=== PATIENT | male | born 1985 | race Caucasian/White ===

== ENCOUNTER 2019-01-16 22:16 | Observation (INO) | payer SELFPAY ==
[2019-01-16 22:24] VITALS: BMI 33.0
[2019-01-16] MEDS ORDERED: LIDOCAINE VISCOUS 2% ORAL/TOP 20 ML UNIT-DOSE CUP MM ONE (23:00)
[2019-01-16] MEDS ORDERED: FAMOTIDINE 20 MG/50 ML IVPB 20 MG/50 ML MG IVPB ONE ×2 (23:00→23:14)
[2019-01-16] MEDS ORDERED: SODIUM CHLORIDE 1,000 ML IV STA (23:00)
[2019-01-16] MEDS ORDERED: MAG HYDROX/AL HYDROX/SIMETH 30 ML UNIT-DOSE CUP PO ONE (23:00)
[2019-01-16] MEDS ORDERED: ONDANSETRON 4 MG/2 ML VIAL IVPB ONE (23:00)
--- NOTE | 2019-01-16 23:07 | PDOC ---
History of Present Illness - General History Source: Patient Exam Limitations: No Limitations - History of Present Illness Travel History: No Initial Comments: 01/16/19 23:03 Pt is a 33yo M with no significant PMH presenting to ED with complaints of epigastric abdominal pain [id number]. Pt states he was eating chicken and rice soup and drinking soda and thinks he may have eaten too much because he started to have abdominal pain and burning sensation in the chest. He normally has heart burn for which he takes tums but states that he has not had abdominal pain this severe before. Pain is in the epigastric area, is sharp, does not radiate, associated with nausea and 2 episodes of emesis which was black due to the soda. He drank milk to calm down the burning but thinks it made it worse. He has been drinking gingerale as well and has been able to keep it down. Denies diarrhea, fevers, chills, recent travel, sob, back pain, urinary symptoms , headache, blood in stools, use of NSAIDs, alcohol use, abdominal surgeries. PMD: Kevin PMH: none PSH: none Allergies: nkda Social: occasional alcohol use <Na Morrow - Last Filed: 01/17/19 07:38> <Joslyn Garcia - Last Filed: 01/18/19 12:53> - General Chief Complaint: Pain Stated Complaint: STOMACE PAIN Time Seen by Provider: 01/16/19 22:35 Past History - Past Medical History COPD: No - Suicide/Smoking/Psychosocial Hx Smoking History: Current every day smoker Have you smoked in the past 12 months: Yes Number of Cigarettes Smoked Daily: 20 Information on smoking cessation initiated: No Hx Alcohol Use: No Drug/Substance Use Hx: No <Na Morrow - Last Filed: 01/17/19 07:38> <Joslyn Garcia - Last Filed: 01/18/19 12:53> - Past Medical History Allergies/Adverse Reactions: Allergies Allergy/AdvReac Type Severity Reaction Status Date / Time No Known Allergies Allergy Verified 01/16/19 22:24 Home Medications: Ambulatory Orders Pantoprazole Sodium [Protonix -] 40 mg PO DAILY #14 tablet.ec 01/17/19 Review of Systems - Review of Systems Constitutional: No: Chills, Fever HEENTM: No: Symptoms Reported Respiratory: No: Symptoms reported Cardiac (ROS): Yes: See HPI, Chest Pain (burning sensation) ABD/GI: Yes: See HPI, Nausea, Vomiting, Abdominal cramping. No: Diarrhea, Rectal Bleeding, Tarry Stools : No: Symptoms Reported Musculoskeletal: No: Symptoms Reported Integumentary: No: Symptoms Reported Neurological: No: Symptoms reported <Na Morrow - Last Filed: 01/17/19 07:38> *Physical Exam - Vital Signs Last Vital Signs Temp Pulse Resp BP Pulse Ox 98.0 F 94 H 18 139/104 H 100 01/16/19 22:21 01/16/19 22:21 01/16/19 22:21 01/16/19 22:21 01/16/19 22:21 - Physical Exam General Appearance: Yes: Appropriately Dressed, Moderate Distress, Obese HEENT: positive: EOMI, RON, Normal ENT Inspection, Other (halolithosis) Neck: positive: Trachea midline, Supple. negative: Lymphadenopathy (R), Lymphadenopathy (L) Respiratory/Chest: positive: Lungs Clear, Normal Breath Sounds. negative: Crackles, Rales, Wheezing Cardiovascular: positive: Regular Rhythm, Regular Rate, S1, S2. negative: Edema , JVD, Murmur Vascular Pulses: Carotid (R): 2+, Carotid (L): 2+, Dorsalis-Pedis (R): 2+, Doralis-Pedis (L): 2+ Gastrointestinal/Abdominal: positive: Normal Bowel Sounds, Soft, Tenderness ( epigastric >RUQ>LUQ). negative: Distended, Guarding, Rebound Musculoskeletal: negative: CVA Tenderness Extremity: positive: Normal Capillary Refill. negative: Pedal Edema, Swelling Integumentary: positive: Normal Color, Dry, Warm Neurologic: positive: sand conditioner machine II-XII NML intact, Fully Oriented, Alert, Normal Mood/ Affect, Normal Response, Motor Strength 5/5 <Na Morrow - Last Filed: 01/17/19 07:38> - Vital Signs Last Vital Signs Temp Pulse Resp BP Pulse Ox 98.4 F 82 18 139/82 98 01/17/19 12:03 01/17/19 12:03 01/17/19 12:03 01/17/19 12:03 01/17/19 12:03 <Joslyn Garciagee - Last Filed: 01/18/19 12:53> ED Treatment Course - LABORATORY CBC & Chemistry Diagram: 01/16/19 23:25 01/16/19 23:25 <Na Morrow - Last Filed: 01/17/19 07:38> - LABORATORY CBC & Chemistry Diagram: 01/17/19 07:20 01/17/19 07:20 - ADDITIONAL ORDERS Additional order review: 01/16/19 23:25 RBC 5.96 H MCV 88.3 MCHC 33.9 RDW 14.2 MPV 9.4 Neutrophils % 77.7 Lymphocytes % 13.5 Monocytes % 6.3 Eosinophils % 1.8 Basophils % 0.7 - RADIOLOGY Radiology Studies Ordered: Category Date Time Status ABDOMEN US -LIMITED [US] Stat Ultrasound 01/17/19 00:18 Completed - Medications Given in the ED: ED Medications Discontinued Medications Generic Name Dose Route Start Last Admin Trade Name Freq PRN Reason Stop Dose Admin Al Hydroxide/Mg Hydroxide 30 ml 01/16/19 23:00 01/16/19 23:26 Mylanta Oral Suspension - PO 01/16/19 23:01 30 ml ONCE ONE Administration Heparin Sodium (Porcine) 5,000 unit 01/17/19 06:00 01/17/19 06:01 Heparin - SQ 5,000 unit TID ANDREA Administration Famotidine/Sodium Chloride 20 mg in 50 mls @ 100 mls/hr 01/16/19 23:00 23:26 Pepcid 20 Mg Premixed Ivpb - IVPB 01/16/19 23:29 100 mls/hr ONCE ONE Administration Sodium Chloride 1,000 mls @ 1,000 mls/hr 01/16/19 23:00 01/16/19 23:26 Normal Saline - IV 01/16/19 23:59 1,000 mls/hr ASDIR STA Administration Lactated Ringer's 1,000 ml in 1,000 mls @ 250 mls/hr 01/17/19 04:15 01/17/19 05:10 Lactated Ringers Solution NR 250 mls/hr ASDIR ANDREA Administration Lactated Ringer's 1,000 ml 01/17/19 00:19 01/17/19 01:41 Lactated Ringers Solution IV 01/17/19 00:20 1,000 ml ONCE ONE Administration Lidocaine HCl 20 ml 01/16/19 23:00 01/16/19 23:26 Xylocaine 2% Viscous Oral - MM 01/16/19 23:01 20 ml ONCE ONE Administration Ondansetron HCl 4 mg 01/16/19 23:00 01/16/19 23:26 Zofran Injection IVPB 01/16/19 23:01 4 mg ONCE ONE Administration Pantoprazole Sodium 40 mg 01/17/19 10:48 01/17/19 11:12 Protonix - PO 01/17/19 10:49 40 mg ONCE ONE Administration <Joslyn Garcia - Last Filed: 01/18/19 12:53> Medical Decision Making - Medical Decision Making 01/16/19 23:07 Pt is a 33yo M with no significant PMH presenting to ED with complaints of epigastric abdominal pain [id number]. Pt states he was eating chicken and rice soup and drinking soda and thinks he may have eaten too much because he started to have abdominal pain and burning sensation in the chest. He normally has heart burn for which he takes tums but states that he has not had abdominal pain this severe before. Pain is in the epigastric area, is sharp, does not radiate, associated with nausea and 2 episodes of emesis which was black due to the soda. He drank milk to calm down the burning but thinks it made it worse. He has been drinking gingerale as well and has been able to keep it down. Denies diarrhea, fevers, chills, recent travel, sob, back pain, urinary symptoms , headache, blood in stools, use of NSAIDs, alcohol use, abdominal surgeries. Vitals: slight tachycardia PE: epigastric, RUQ and LUQ tenderness Ddx includes but not limited to gastritis, gerd, pancreatitis, pud, perforation , cholelithiasis, colitis, pyelonephritis, dissection, aaa, electrolyte/ metabolic disturbance, malignancy -labs, lipase -maalox, lidocaine, pepcid, zofran, fluids -reassess labs significant for wbc 22 and rbc 17. pt hemoconcentrated however white count is significant. lipase 700s. pt feeling better. bedside sono: negative sonographic murphys sign, no gallstones, normal gbw and cbd, no pericholecystic fluid. some small bowel dilated loops. -RUQ sono. pain is returning. Pancreatitis could be early on in course. given white count, elevated lipase and returning pain, will obs pt. CT ordered per hospitalist request 01/17/19 07:40 <Na Morrow - Last Filed: 01/17/19 07:38> *DC/Admit/Observation/Transfer - Discharge Dispostion Decision to Admit order: Yes <Na Morrow - Last Filed: 01/17/19 07:38> - Discharge Dispostion Decision to Admit order: Yes <Joslyn Garcia - Last Filed: 01/18/19 12:53> Diagnosis at time of Disposition: Pancreatitis - Discharge Dispostion Condition at time of disposition: Improved
[2019-01-16] MEDS ORDERED: LIDOCAINE VISCOUS 2% ORAL/TOP 20 ML UNIT-DOSE CUP ONE (23:13)
[2019-01-16] MEDS ORDERED: MAG HYDROX/AL HYDROX/SIMETH 30 ML UNIT-DOSE CUP ONE (23:14)
[2019-01-16] MEDS ORDERED: ONDANSETRON 4 MG/2 ML VIAL ONE (23:14)
[2019-01-16 23:33] LABS: BASO % 0.7 % (0-2.0); EOS % 1.8 % (0-4.5); HEMATOCRIT 52.6 % (35.4-49); HEMOGLOBIN 17.8 GM/dL (11.7-16.9); LYMPH % 13.5 % (8-40); MCH 29.9 pg (25.7-33.7); MCHC 33.9 g/dl (32.0-35.9); MEAN CELL VOLUME 88.3 fl (80-96); MEAN PLT VOLUME 9.4 fl (7.5-11.1); MONO % 6.3 % (3.8-10.2); NEUT % 77.7 % (42.8-82.8); RBC 5.96 M/mm3 (4.00-5.60); RDW 14.2 % (11.9-15.9); WHITE BLOOD COUNT 22.4 K/mm3 (4.0-10.0)
--- NOTE | 2019-01-17 00:02 | PDOC ---
Documentation entered by Rhina Field SCRIBE, acting as scribe for Joslyn Garcia MD. Joslyn Garcia MD: This documentation has been prepared by the scribe, Rhina Field SCRIBE, under my direction and personally reviewed by me in its entirety. I confirm that the documentation accurately reflects all work, treatment, procedures, and medical decision making performed by me. Attending Attestation - Resident Resident Name: Na Morrow - ED Attending Attestation I have performed the following: I have examined & evaluated the patient, The case was reviewed & discussed with the resident, I agree w/resident's findings & plan - HPI HPI: 01/16/19 23:55 Mr. Field is a 33 year old male with no reported past medical history presents to the emergency department with epigastric pain. The patient presents with sharp epigastric pain, that presented after having soup and a soda. The patient reports the pain is nonradiational, unrelieved with Tums or with milk. The patient reports associated symptoms of nausea with x2 episodes of dark emesis, secondary to the soda and burning sensation to the chest. Denies chest pain or shortness of breath. Denies fever, chills, cough, sick contact, or recent travel. - Physicial Exam PE: 01/16/19 23:55 Agree with the resident's HPI and PE as documented in the electronic medical record. NAD, well appearing, PERRL, EOMI, nl conjunctiva, anicteric; neck supple. lungs clear, RRR, abdomen soft protuberant, +epigastric TTP, no [place] sign, no rebound or guarding, no CVAT. JESUS x4,. No peripheral edema. normal color for ethnicity, WWP. - Medical Decision Making 01/17/19 00:01 hpi as documented VS reviewed, mildly hypertensive, but in pain DDx abdominal pain: Renal colic, biliary colic, metabolic/electrolyte derangements. GERD, PUD, esophageal spasm, pancreatitis, hepatitis, constipation , colitis, gastroenteritis, cholecystitis, UTI, pyelonephritis, ileus, SBO, medication side effect, hernia, appendicitis, diverticulitis labs and lytes with +leukocytosis of 22K, hemoconcentrated - likely from pancreatitis. +lipase mildly elevated ~760, mild pancreatitis and symptomatic ED course: given meds, IVF with LR, GI cocktail and fluids, analgesia, reassess - bedside pocus biliary neg for stones, GB wall 0.3cm, no fluid, neg nielsen's sign, CBD diameter normal <4mm. incidentally noted for small bowel loops to be dilated 2.3cm, does not reach threshold for SBO, no abdominal surgeries, passing flatus and BM normally - official RUQ sono no GB pathology, fatty liver, normal pancreas. - on clinical reassessment 2AM - pain returning, in epigastrium, declines intake , nausea; finished 2L fluids, current pain 3/4, offered analgesia. - admit for acute pancreatitis, bowel rest, analgesia, serial abdominal exam and hydration, pain control 01/17/19 00:21 01/17/19 02:20 Procedures - Bedside Ultrasound Bedside Ultrasound: Gallbladder Remarks: 01/17/19 00:21 POCUS biliary exam: Indication: abdominal pain Views: gallbladder long and short axis, CBD Findings: no stones or GB wall thickening or pericholecystic fluid, normal CBD < 3mm for age. Neg sono murphys Impression: no acute findings. No cholelithiasis or cholecystitis.
[2019-01-17 00:17] LABS: ALBUMIN 4.3 g/dl (3.4-5.0); ALK PHOS 102 U/L (45-117); ANION GAP 8 MMOL/L (8-16); BILIRUBIN,TOTAL 0.6 mg/dL (0.2-1); BLOOD UREA NITROGEN 12 mg/dL (7-18); CALCIUM 10.3 mg/dL (8.5-10.1); CHLORIDE 100 mmol/L (98-107); CO2 30 mmol/L (21-32); CREATININE 1.1 mg/dL (0.55-1.3); GLUCOSE,RANDOM 113 mg/dL (74-106); SGOT/AST 29 U/L (15-37); SGPT/ALT 90 U/L (13-61); SODIUM 137 mmol/L (136-145); TOT PROT 8.5 g/dl (6.4-8.2)
[2019-01-17] MEDS ORDERED: LACTATED RINGERS SOLUTION 1000 ML INFUS.BAG IV ONE (00:19)
[2019-01-17 01:33] LABS: PLATELET COUNT 223 K/MM3 (134-434)
[2019-01-17 02:09] LABS: ANISOCYTOSIS 0; HELMET CELLS 0; HOWELL-JOLLY BODIES 0; MACROCYTOSIS 0; OVALOCYTE 0; PLATELET ESTIMATE NORMAL; ROULEAU 0; SICKELED CELLS 0; TARGET CELLS 0; TEAR DROP CELLS 0; TOXIC GRANULATION 0
--- NOTE | 2019-01-17 03:39 | HP ---
CHIEF COMPLAINT: Epigastric abdominal pain PCP: HISTORY OF PRESENT ILLNESS: Patient is a 33 year old male with no significant medical history presents with complaint of epigastric abdominal pain. Patient endorses pain began 4PM today, described as sharp, nonradiating. Patient states that he ate chicken noodle soup with rice today and noted feeling "stuffed". He tried taking Tums which normally does alleviate this pain, however, today he came into the hospital when Tums failed to improve his pain. Patient endorses vomiting three times today; last time was associated with a streak of blood within the vomitus. His last bowel movement was earlier today, solid, brown, without melena, hematochezia. He admits chills, denies subjective fevers. ER course was notable for: (1) Lipase 760 (2) WBC 22.4 (3) Recent Travel: PAST MEDICAL HISTORY: denies PAST SURGICAL HISTORY: denies Social History: Smoking: admits 10 pack year smoking history Alcohol: endorses three - four drinks (beer or mixed liquor) on weekends Drugs: denies Family History: Father: diabetes mellitus Mother: diabetes mellitus No history of cancer noted Allergies: Denies food allergies No Known Allergies Allergy (Verified 01/16/19 22:24) HOME MEDICATIONS: Home Medications Medication Instructions Recorded Oxycodone HCl/Acetaminophen 1 tab PO TID 01/17/19 [Percocet 5-325 mg Tablet] REVIEW OF SYSTEMS CONSTITUTIONAL: Absent: fever, chills, diaphoresis, generalized weakness, malaise, loss of appetite, weight change HEENT: Admits: sore throat. Absent: rhinorrhea, nasal congestion, throat swelling, difficulty swallowing, mouth swelling, visual changes CARDIOVASCULAR: Absent: chest pain, syncope, palpitations, irregular heart rate, lightheadedness , peripheral edema RESPIRATORY: Absent: cough, shortness of breath, dyspnea with exertion, orthopnea, wheezing, stridor, hemoptysis GASTROINTESTINAL: Admits: abdominal pain, nausea, vomiting. Absent: abdominal distension, diarrhea , constipation, melena, hematochezia GENITOURINARY: Absent: dysuria, frequency, urgency, hesitancy, hematuria, flank pain, genital pain MUSCULOSKELETAL: Absent: myalgia, arthralgia, joint swelling, back pain, neck pain SKIN: Absent: rash, itching, pallor HEMATOLOGIC/IMMUNOLOGIC: Absent: easy bleeding, easy bruising, lymphadenopathy, frequent infections ENDOCRINE: Absent: unexplained weight gain, unexplained weight loss, heat intolerance, cold intolerance NEUROLOGIC: Absent: headache, focal weakness or paresthesias, dizziness, unsteady gait, seizure, mental status changes, bladder or bowel incontinence PSYCHIATRIC: Absent: anxiety, depression, suicidal or homicidal ideation, hallucinations. PHYSICAL EXAMINATION Vital Signs - 24 hr 01/16/19 22:21 Temperature 98.0 F Pulse Rate 94 H Respiratory 18 Rate Blood Pressure 139/104 H O2 Sat by Pulse 100 Oximetry (%) GENERAL: Awake, alert, and fully oriented, in no acute distress. HEAD: Normocephalic, atraumatic EYES: Pupils equal, round and reactive to light, extraocular movements intact, sclera anicteric, conjunctiva clear. EARS, NOSE, THROAT: Ears normal, nares patent, oropharynx clear without exudates. Moist mucous membranes. NECK: Normal range of motion, supple without lymphadenopathy. LUNGS: Breath sounds equal, clear to auscultation bilaterally. No wheezes, and no crackles. No accessory muscle use. HEART: Regular rate and rhythm, normal S1 and S2 without murmur, rub or gallop. ABDOMEN: Obese. Soft, tender to light palpation at epigastrum. Normoactive bowel sounds X4 quadrants, no guarding, no rebound tenderness. No hepatomegaly palpated or percussed. MUSCULOSKELETAL: Normal range of motion at all joints. No bony deformities or tenderness. UPPER EXTREMITIES: 2+ radial pulses bilaterally, warm, well-perfused. LOWER EXTREMITIES: 2+ dorsalis pedis pulses bilaterally, warm, well-perfused. No calf tenderness bilaterally. No peripheral edema bilaterally. NEUROLOGICAL: Cranial nerves II-XII intact. Normal speech. No gross focal deficits. PSYCHIATRIC: Cooperative. Good eye contact. Appropriate mood and affect. SKIN: Warm, dry. Laboratory Results - last 24 hr 01/16/19 01/16/19 01/16/19 23:25 23:25 23:25 WBC 22.4 H RBC 5.96 H Hgb 17.8 H Hct 52.6 H MCV 88.3 MCH 29.9 MCHC 33.9 RDW 14.2 Plt Count 223 MPV 9.4 Absolute Neuts (auto) 17.4 H Neutrophils % 77.7 Neutrophils % (Manual) 75.5 Band Neutrophils % 0.0 Lymphocytes % 13.5 Lymphocytes % (Manual) 18.6 Monocytes % 6.3 Monocytes % (Manual) 3 L Eosinophils % 1.8 Eosinophils % (Manual) 0.0 Basophils % 0.7 Basophils % (Manual) 0.0 Myelocytes % (Man) 0 Promyelocytes % (Man) 0 Blast Cells % (Manual) 0 Nucleated RBC % 0 Metamyelocytes 0 Hypochromia 0 Toxic Granulation 0 Dohle Bodies 0 Platelet Estimate Normal Polychromasia 0 Poikilocytosis 0 Basophilic Stippling 0 Anisocytosis 0 Microcytosis 0 Macrocytosis 0 Spherocytes 0 Sickle Cells 0 Target Cells 0 Tear Drop Cells 0 Ovalocytes 0 Stomatocytes 0 Helmet Cells 0 [place] Bodies 0 [place] Rings 0 Pinole Cells 0 Acanthocytes (Spur) 0 Rouleaux 0 Fragmented RBCs 0 Schistocytes 0 Sodium 137 Potassium 4.0 Chloride 100 Carbon Dioxide 30 Anion Gap 8 BUN 12 Creatinine 1.1 Creat Clearance w eGFR 77.09 Random Glucose 113 H Calcium 10.3 H Total Bilirubin 0.6 AST 29 ALT 90 H Alkaline Phosphatase 102 Total Protein 8.5 H Albumin 4.3 Lipase 760 H ASSESSMENT/PLAN: Patient is a 33 year old male with no significant medical history presents with complaint of epigastric abdominal pain. Epigastric abdominal pain -Ruling out acute pancreatitis. Lipase 760. AST 29/ ALT 90/ alkaline phosphatase 102/ total bili 0.6. WBC 22.4 -Follow CT abdomen, pelvis with IV contrast -NPO -Aggressive hydration with IV Lactated Ringer's at 250mL/ hour -Pain control with -Gastroenterology consult (Dr. Blackwell) Polycythemia -Possible secondary to dilution, as patient endorses three episodes of vomiting. Currently being rehydrated. -Follow CBC FEN -IV Lactated Ringer's at 250mL/ hour -Follow CMP -NPO Prophylaxis -Heparin 5000u subq TID Disposition -Observation in medical- surgical floor Visit type - Emergency Visit Emergency Visit: Yes ED Registration Date: 01/17/19 Care time: The patient presented to the Emergency Department on the above date and was hospitalized for further evaluation of their emergent condition. - New Patient This patient is new to me today: Yes Date on this admission: 01/17/19 - Critical Care Critical Care patient: No
--- NOTE | 2019-01-17 03:59 | PN ---
Teaching Attending Note Name of Resident: Ehsan Andrade ATTENDING PHYSICIAN STATEMENT I saw and evaluated the patient. I reviewed the resident's note and discussed the case with the resident. I agree with the resident's findings and plan as documented. SUBJECTIVE: patient denied any aclohol abuse stated that he has upper GI pain that is on and off but this time its worse and did not resolve. OBJECTIVE: s1 and s2 rrr soft tender abdomen no swelling ASSESSMENT AND PLAN: acute pancreatitis admit to med surg IVF hydration keep patient NPO until the patient asks food pain management GI consult
[2019-01-17] MEDS ORDERED: LACTATED RINGERS SOLUTION 1,000 ML/1,000 ML INFUS.BAG NR SCH (04:15)
[2019-01-17] MEDS ORDERED: HEPARIN NA (PORCINE) 5,000 UNITS/ML 1ML VIAL SQ SCH (06:00)
[2019-01-17 08:09] LABS: HEMATOCRIT 42.7 % (35.4-49); MCH 30.8 pg (25.7-33.7); MCHC 35.1 g/dl (32.0-35.9); MEAN CELL VOLUME 87.8 fl (80-96); MEAN PLT VOLUME 9.6 fl (7.5-11.1); PLATELET COUNT 146 K/MM3 (134-434); RBC 4.87 M/mm3 (4.00-5.60); RDW 13.9 % (11.9-15.9)
[2019-01-17 08:44] LABS: ALBUMIN 3.2 g/dl (3.4-5.0); ALK PHOS 76 U/L (45-117); ANION GAP 3 MMOL/L (8-16); BILIRUBIN,TOTAL 0.7 mg/dL (0.2-1); BLOOD UREA NITROGEN 10 mg/dL (7-18); CALCIUM 8.6 mg/dL (8.5-10.1); CHLORIDE 106 mmol/L (98-107); CO2 28 mmol/L (21-32); CREATININE 0.8 mg/dL (0.55-1.3); GLUCOSE,RANDOM 93 mg/dL (74-106); POTASSIUM 4.1 mmol/L (3.5-5.1); SGOT/AST 20 U/L (15-37); SGPT/ALT 62 U/L (13-61); SODIUM 138 mmol/L (136-145); TOT PROT 6.4 g/dl (6.4-8.2)
[2019-01-17] MEDS ORDERED: PANTOPRAZOLE 40 MG TABLET (FP) PO ONE (10:48)
[2019-01-17] MEDS ORDERED: PANTOPRAZOLE 40 MG TABLET (FP) ONE (11:02)
[2019-01-17 12:04] VITALS: BP 139/82; PULSE 82; TEMP 98.4
--- NOTE | 2019-01-17 12:27 | DS ---
Physical Exam: SUBJECTIVE: Patient seen and examined. pain has resolved. requesting to eat. states hes been having these symptoms assoc with metallic taste his mouth on/ off for several weeks however yesterday was the worst assoc with vomiting prompted him to come to the ER. has not seen PMD in many years denies Cp, SOB< fever, chills, N/V/C?D OBJECTIVE: Vital Signs Period Temp Pulse Resp BP Sys/Ashton Pulse Ox Last 24 Hr 98 F-98.8 F 80-102 17-18 127-139/71-104 96-100 PHYSICAL EXAM GENERAL: The patient is awake, alert, and fully oriented, in no acute distress. HEAD: Normal with no signs of trauma. EYES: PERRL, extraocular movements intact, sclera anicteric, conjunctiva clear. ENT: Ears normal, nares patent, oropharynx clear without exudates, moist mucous membranes. NECK: Trachea midline, full range of motion, supple. LUNGS: Breath sounds equal, clear to auscultation bilaterally, no wheezes, no crackles, no accessory muscle use. HEART: Regular rate and rhythm, S1, S2 without murmur, rub or gallop. ABDOMEN: Soft, + epigastric tenderness, nondistended, normoactive bowel sounds, no guarding, no rebound, no hepatosplenomegaly, no masses. neg nielsen sign EXTREMITIES: 2+ pulses, warm, well-perfused, no edema. NEUROLOGICAL: Cranial nerves II through XII grossly intact. Normal speech, gait not observed. PSYCH: Normal mood, normal affect. SKIN: Warm, dry, normal turgor, no rashes or lesions noted. LABS Laboratory Results - last 24 hr 01/16/19 01/16/19 01/16/19 23:25 23:25 23:25 WBC 22.4 H RBC 5.96 H Hgb 17.8 H Hct 52.6 H MCV 88.3 MCH 29.9 MCHC 33.9 RDW 14.2 Plt Count 223 MPV 9.4 Absolute Neuts (auto) 17.4 H Neutrophils % 77.7 Neutrophils % (Manual) 75.5 Band Neutrophils % 0.0 Lymphocytes % 13.5 Lymphocytes % (Manual) 18.6 Monocytes % 6.3 Monocytes % (Manual) 3 L Eosinophils % 1.8 Eosinophils % (Manual) 0.0 Basophils % 0.7 Basophils % (Manual) 0.0 Myelocytes % (Man) 0 Promyelocytes % (Man) 0 Blast Cells % (Manual) 0 Nucleated RBC % 0 Metamyelocytes 0 Hypochromia 0 Toxic Granulation 0 Dohle Bodies 0 Platelet Estimate Normal Polychromasia 0 Poikilocytosis 0 Basophilic Stippling 0 Anisocytosis 0 Microcytosis 0 Macrocytosis 0 Spherocytes 0 Sickle Cells 0 Target Cells 0 Tear Drop Cells 0 Ovalocytes 0 Stomatocytes 0 Helmet Cells 0 Cotter-Murtaugh Bodies 0 [place] Rings 0 Caden Cells 0 Acanthocytes (Spur) 0 Rouleaux 0 Fragmented RBCs 0 Schistocytes 0 Sodium 137 Potassium 4.0 Chloride 100 Carbon Dioxide 30 Anion Gap 8 BUN 12 Creatinine 1.1 Creat Clearance w eGFR 77.09 Random Glucose 113 H Calcium 10.3 H Total Bilirubin 0.6 AST 29 ALT 90 H Alkaline Phosphatase 102 Total Protein 8.5 H Albumin 4.3 Lipase 760 H 01/17/19 01/17/19 07:20 07:20 WBC 12.0 H RBC 4.87 Hgb 15.0 Hct 42.7 D MCV 87.8 MCH 30.8 MCHC 35.1 RDW 13.9 Plt Count 146 D MPV 9.6 Absolute Neuts (auto) Neutrophils % Neutrophils % (Manual) Band Neutrophils % Lymphocytes % Lymphocytes % (Manual) Monocytes % Monocytes % (Manual) Eosinophils % Eosinophils % (Manual) Basophils % Basophils % (Manual) Myelocytes % (Man) Promyelocytes % (Man) Blast Cells % (Manual) Nucleated RBC % Metamyelocytes Hypochromia Toxic Granulation Dohle Bodies Platelet Estimate Polychromasia Poikilocytosis Basophilic Stippling Anisocytosis Microcytosis Macrocytosis Spherocytes Sickle Cells Target Cells Tear Drop Cells Ovalocytes Stomatocytes Helmet Cells Cotter-Murtaugh Bodies [place] Rings Vaughn Cells Acanthocytes (Spur) Rouleaux Fragmented RBCs Schistocytes Sodium 138 Potassium 4.1 Chloride 106 Carbon Dioxide 28 Anion Gap 3 L BUN 10 Creatinine 0.8 Creat Clearance w eGFR 111.33 Random Glucose 93 Calcium 8.6 Total Bilirubin 0.7 AST 20 ALT 62 H Alkaline Phosphatase 76 Total Protein 6.4 Albumin 3.2 L Lipase HOSPITAL COURSE: Date of Admission:01/17/19 Date of Discharge: 01/17/19 Admitting Diagnosis: GERD, obese pre hospital course 33 year old male with no significant medical history presents with complaint of epigastric abdominal pain. Patient endorses pain began 4PM today, described as sharp, nonradiating. Patient states that he ate chicken noodle soup with rice today and noted feeling "stuffed". He tried taking Tums which normally does alleviate this pain, however, today he came into the hospital when Tums failed to improve his pain. Patient endorses vomiting three times today; last time was associated with a streak of blood within the vomitus. His last bowel movement was earlier today, solid, brown, without melena, hematochezia. He admits chills , denies subjective fevers. Subsequent hospital course Medicine observation. NPO, ivf and antiemetics. CT abdomen was negative. lipase 700's. pain improved. appears to be more GERD related. discussed in detail about dietary and lifestyle modifications. PPI 2 week trial on discharge. d/c home Minutes to complete discharge: 40 Discharge Summary Reason For Visit: PANCREATITIS Current Active Problems Fatty liver (Acute) GERD (gastroesophageal reflux disease) (Acute) Obese (Acute) Condition: Improved - Instructions Diet, Activity, Other Instructions: You came to the hospital because of your stomach pain. This could have been in relation to something you ate but you may also suffer from reflux disease You were started on a acid lowering medication, protonix. take this once a day for 2 weeks. if your symptoms do not improve follow up with a GI specialist to see if you requiring further testing. Information on one has been provided. Slowly advance your diet as home as tolerated. Avoid eating fatty, fried, spicy or foods containing a lot of caffiene as these can worsen your stomach pain Excercise and follow a healthy diet (avoid processed foods) in order to loose weight for overall health. Your goal should be 1-2lbs/week Follow up with a primary care doctor. Information on one has been provided. If your symptoms worsen return to the ER. Referrals: Mulu Blackwell DO [Staff Physician] - Disposition: HOME - Home Medications Comprehensive Discharge Medication List: Ambulatory Orders Pantoprazole Sodium [Protonix -] 40 mg PO DAILY #14 tablet.ec 01/17/19 This patient is new to me today: Yes Date on this admission: 01/17/19 Emergency Visit: Yes ED Registration Date: 01/17/19 Care time: The patient presented to the Emergency Department on the above date and was hospitalized for further evaluation of their emergent condition. Critical Care patient: No - Discharge Referral Referred to [facility] No
--- NOTE | 2019-01-17 15:20 | EKG ---
Test Reason : Blood Pressure : / mmHG Vent. Rate : 093 BPM Atrial Rate : 093 BPM P-R Int : 154 ms QRS Dur : 078 ms QT Int : 356 ms P-R-T Axes : 069 031 033 degrees QTc Int : 442 ms NORMAL SINUS RHYTHM NORMAL ECG WHEN COMPARED WITH ECG OF 17-JAN-2019 01:39, NO SIGNIFICANT CHANGE WAS FOUND Confirmed by CATHERINE SHARP MD ([id number]) on 01/17/2019 3:20:21 PM Referred By: Bernard TYSON Confirmed By:CATHERINE SHARP MD
== END 2019-01-17 12:45 | disposition home or self-care (01) ==
LOC: JER 22:16 → JERBED 01-17 02:26
PROVIDERS: ADMIT Internal Medicine; ATTEND Internal Medicine
PROC: 3E033GC Introduction of Other Therapeutic Substance into Peripheral Vein, Percutaneous Approach (ICD-10-PCS; principal; 2019-01-17)
PROC: 3E0337Z Introduction of Electrolytic and Water Balance Substance into Peripheral Vein, Percutaneous Approach (ICD-10-PCS; 2019-01-17)
PROC: 3E013GC Introduction of Other Therapeutic Substance into Subcutaneous Tissue, Percutaneous Approach (ICD-10-PCS; 2019-01-17)
DX: K85.90 Acute pancreatitis without necrosis or infection, unspecified (principal); D75.1 Secondary polycythemia; F17.210 Nicotine dependence, cigarettes, uncomplicated; K76.0 Fatty (change of) liver, not elsewhere classified; K21.9 Gastro-esophageal reflux disease without esophagitis; E66.9 Obesity, unspecified; Z68.33 Body mass index [BMI] 33.0-33.9, adult
CPT/HCPCS: 36415; 74177-TC; 76705-TC; 80053; 83690; 85025; 85027; 93005; 93010; 99284-25; G0378; J1644; J7030